=== PATIENT | female | born 1980 | race Two or more races ===

== ENCOUNTER → 2021-10-09 | Outpatient (CLI) | payer OTHER ==
[2015-10-25 11:54] VITALS: BP 106/62
[~2021-10-09] MED LIST: CYCL10TA19 PO; DOCU-109 PO; FERR325T14 PO; HYDR-3072 PO; METH-38 PO; NAPR-514 PO; OXYC1TAB7 PO; PHEN37.53 PO; POLY17PO29 PO; PRAM0.255 PO
--- NOTE | 2021-10-09 14:38 | KCIC ---
Bilateral digital screening mammograms: Reason for examination: Routine baseline screening. Interpretation was made with the benefit of CAD. The skin and nipples show no abnormalities. No abnormal axillary lymph nodes are seen. The breast par enchyma is heterogeneously dense. (Breast density: Category C.) There is a 1.7 cm nodule at the 11:00 C position of the left breast 8 cm from the nipple. There is also a subtle nodule seen anterior late rally in the left breast on cc view probably at the 3:00 position measuring 1.5 cm in greatest dimens ion. In the right breast, there is also a small 5 mm nodule approximately 5 cm from the nipple probab ly at the 6:00 position. Further evaluation with ultrasound is recommended. There are no other domina nt masses, suspicious calcifications or architectural distortion. Impression: Nodules bilaterally with the largest located posteriorly at the 11:00 C position of the left breast. Recommend further evaluation with bilateral breast ultrasound. Your patient's mammogram demonstrates that she has dense breast tissue (breast density category C or D), which could hide abnormalities, and if she has other risk factors for breast cancer that have bee n identified, she might benefit from supplemental screening tests that may be suggested by you as her ordering physician. Dense breast tissue, in and of itself, is a relatively common condition. Therefo re, this information is not provided to cause undue concern, but rather to raise your awareness and t o promote discussion with your patient regarding the presence of other risk factors, in addition to d ense breast tissue. Your patient's mammography results will be sent to her. BI-RAD Category 0: Incomplete. Needs additional imaging evaluation. "Our facility is accredited by the [employer] Mammography [employer]." This patient's information has been entered into a reminder system for the patient to be notified wit h the results of her examination and a target date for the next mammogram. Electronically signed by: Sveta Avila MD (10/09/2021 2:36 PM) [facility]
== END ==
LOC: KCIC MAMMO 13:47
PROVIDERS: ATTEND Nurse Practitioner Family
DX: Z12.31 Encounter for screening mammogram for malignant neoplasm of breast (principal)
CPT/HCPCS: 77067

== ENCOUNTER → 2021-10-25 | Outpatient (CLI) | payer OTHER ==
[2015-10-25 11:54] VITALS: BP 106/62
--- NOTE | 2021-10-25 14:14 | KCIC ---
US BREAST BILAT Clinical Indication: Reason: Call Back Bilateral Breast from mamm 10-09-21 Comparison: Bilateral mammogram October 09, 2021. TECHNIQUE: Real-time ultrasound imaging of the right and left breast is performed. Findings: Right: There are tiny cysts or fibrocystic change at the 6:00 position 3 and 4 cm from the nipple. At the 6:00 retroareolar position there is a 9 x 4 mm hypoechoic mass. There appear to be thin echoge tara internal septations. There are no definite posterior acoustic features. Mass may be atypical fibr ocystic or fibroadenomatoid change although a malignancy is not excluded. Color Doppler interrogation is negative. There are no abnormal axillary lymph nodes. Left: At the 11:30 position 8 cm from the nipple there is a 1.4 cm lobular, markedly hypoechoic mass with m ild posterior acoustic shadowing. There is some vascularity at the periphery. At the 3:00 position 4 cm from the nipple there is a well-circumscribed hypoechoic mass that is paral lel and nonshadowing measuring 1.7 x 0.7 cm. There are no abnormal axillary lymph nodes. At the time of dictation the office is closed. Technologist will call the office on Friday. IMPRESSION: 1. In the left breast at the 11:30 position 8 cm from the nipple there is a markedly hypoechoic 1.4 cm suspicious mass. Ultrasound guided biopsy is recommended. 2. In the right breast 6:00 retroareolar position there is a subcentimeter hypoechoic mass. Ultrasou nd-guided biopsy is recommended. 3. 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 Ultrasoun d follow-up in 6 months is suggested. 4. BI-RADS Category 4, suspicious. Electronically signed by: Isidro Belle MD (10/25/2021 2:12 PM) [id number]
== END ==
LOC: KCIC US 13:12
PROVIDERS: ATTEND Nurse Practitioner Family
DX: N63.13 Unspecified lump in the right breast, lower outer quadrant (principal); N63.22 Unspecified lump in the left breast, upper inner quadrant; N63.23 Unspecified lump in the left breast, lower outer quadrant
CPT/HCPCS: 76641

== ENCOUNTER → 2021-11-15 | Outpatient (CLI) | payer OTHER ==
[2015-10-25 11:54] VITALS: BP 106/62
[~2021-11-15] MED LIST changes: +LIDOCAINE 2% Multi-Dose 20 ML VIAL. IJ ONE
--- NOTE | 2021-11-15 10:18 | RAD ---
EXAM: Sonographic guided bilateral breast biopsy; bilateral breast biopsy clip placement; bilateral p ostbiopsy mammogram. HISTORY: 41-year-old female presents for sonographic guided biopsy of lesions within both breasts dem onstrated on a sonogram performed 10/25/2021. TECHNIQUE: The risks of the procedure discussed with the patient and written and verbal written was o btained. A timeout was performed. Sonographic imaging of the left breast was performed and the lesion of concern at the 11:30 position 8 cm for the nipple measuring 1.4 cm was identified. The skin overl jackie this region was sterilely prepped, draped and infiltrated with 1 percent lidocaine. Deeper anest hesia was provided with 1 percent lidocaine surrounding the lesion of concern. Multiple core samples were obtained and a biopsy clip was advanced into the lesion. Manual compression was maintained until hemostasis was achieved. A sterile bandage was placed. Subsequently, sonographic imaging of the right breast was performed and the lesion of concern measur ing 1.7 cm at the 3:00 position 4 cm from the nipple is identified. The skin overlying this region wa s sterilely prepped, draped and infiltrated with 1 percent lidocaine. Deeper anesthesia was provided with 1 percent lidocaine surrounding the lesion of concern. Multiple core samples were obtained and a biopsy clip was advanced into the lesion. Manual compression was maintained until hemostasis was ach ieved. A sterile bandage was placed. Postbiopsy mammogram was obtained and interpreted at a separate workstation. This demonstrates the bi opsy clips in expected position. The patient tolerated the procedure without complication and was dis charged in stable condition. IMPRESSION: Sonographic guided biopsy of lesions within the 11:30 position of the left breast at 3:00 position of the left breast and biopsy clip placement. An addendum to this report will be submitted when pathology results are available. Electronically signed by: Kelsie Love MD (11/15/2021 10:16 AM) [id number]
--- NOTE | 2021-11-16 16:23 | PATHOLOGY ---
[facility] Accession Number: [id number] . 01 Material submitted: . PART A: breast - LEFT BREAST MASS 11:30 8CM FN 1.4CM. Modifiers: left, 11:30, 8CM FN PART B: breast - RIGHT BREAST MASS 6 O'CLOCK RETROAREOLAR .8CM. Modifiers: right, 6:00, RETROAREOLAR . 01 Clinical history: . A: LEFT BREAST MASS LEFT BREAST BIOPSY OBTAINED: 9:02AM FORMALIN: 9:03AM . B: RIGHT BREAST MASS RIGHT BREAST BIOPSY OBTAINED: 9:15AM FORMALIN: 9:16AM . 02 Diagnosis: A. Breast tissue, left breast mass 11:30, 8 cm from nipple, needle biopsies: - Fibroadenoma. . B. Breast tissue, right breast mass 6:00, retroareolar, needle biopsies: - Fibroadenoma. . (GARRYM:jone; 11/16/2021) [facility] 11/16/2021 1416 Local . 02 Comment: There is no atypia or evidence of malignancy. (GARRYM:jone; 11/16/2021) . 02 Electronically signed: . Devan Rees MD, Pathologist NPI- [id number] . 01 Gross description: . A. The specimen is received in formalin, labeled "Otilia Peace, left breast 1130 8 cm FN". Received are 3 needle cores of fibrofatty tissue measuring 1.8 x 0.6 x 0.2 cm in aggregate dimensions. The specimen is submitted entirely in cassettes A1-A3. The specimen is collected at 902 and placed into formalin at 903 on 11/15/2021. The specimen is removed from formalin at 2240 on 11/15/2021. The total formalin fixation time is 13 hours and 37 minutes. . B. The specimen is received in formalin, labeled "Otilia Peace, right breast 6:00 retroareolar". Received are 3 needle cores of fibrofatty tissue measuring 1.6 x 0.6 x 0.2 cm in aggregate dimensions. The specimen is submitted entirely in cassettes A1-A3. The specimen is collected at 915 and placed into formalin at 916 on 11/15/2021. The specimen is removed from formalin at 2240 on 11/15/2021. The total formalin fixation time is 13 hours and 24 minutes. ([facility]; 11/15/2021) NRI/NRI 11/15/20212022 Local . 02 Pathologist provided ICD-10: D24.2, D24.1 . 02 CPT . 443017, [id number] Specimen Comment: A courtesy copy of this report has been sent to [phone], [phone] Specimen Comment: [id number], Specimen Comment: Report sent to , DR INGRAM / DR DODD Performed at: 01 [facility] [address], [place] [id number] MD Sergei Hilliard MD Phone: [phone] Performed at: 02 [facility] [address] [place], [place] [id number] MD Devan Rees MD Phone: [phone]
== END | disposition home or self-care (01) ==
LOC: US 07:48
PROVIDERS: ATTEND Surgery
DX: R92.8 Other abnormal and inconclusive findings on diagnostic imaging of breast (principal); D24.2 Benign neoplasm of left breast; D24.1 Benign neoplasm of right breast; N63.22 Unspecified lump in the left breast, upper inner quadrant; N63.14 Unspecified lump in the right breast, lower inner quadrant; Z79.899 Other long term (current) drug therapy
CPT/HCPCS: 19083; 19084; 77065; 88305; A4648; C1819